=== PATIENT | female | born 1995 | race Asian ===

== ENCOUNTER → 2023-09-26 07:24 | Outpatient (CLI) | payer OTHER, SELFPAY ==
--- NOTE | 2023-09-26 07:30 | DI.MRI.S_ITS ---
PROCEDURE: MR LUMBAR SPINE WO CON INDICATIONS: Sacroiliitis and low back pain TECHNIQUE: Noncontrast sagittal T1 spin echo and T2 fast echo, sagittal STIR, axial T1 and T2 fast spin echo through the lumbar spine. Axial and oblique coronal T1 spin echo and STIR through the sacrum. In cases with scoliosis, additional coronal T2 fast spin echo may be performed. COMPARISON: None. FINDINGS: Image quality: Excellent. Alignment and Curvature: Trace anterolisthesis of L5 on S1. Bone Marrow: Marrow is of normal overall signal. No acute vertebral body compression fractures. No sacral fractures. Spinal Cord: Conus medullaris terminates at the L1 level. Visualized cord demonstrates normal signal and size. Paraspinous Soft Tissues: No paravertebral masses. T12-L1: Normal appearance. L1-L2: Normal appearance. L2-L3: Normal appearance. L3-L4: Disc bulge. Facet hypertrophy. Mild canal stenosis. No significant foraminal stenosis. L4-L5: Disc bulge. Facet hypertrophy. Mild canal stenosis. No significant foraminal stenosis. L5-S1: There is moderate broad-based posterior disc protrusion, indenting on the thecal sac, resulting in moderate canal stenosis. Both S1 nerve roots are mildly posteriorly deviated in the lateral recesses. Bilateral facet hypertrophy. No significant foraminal stenosis. Sacrum: Sacral neural foramina appear normal throughout. Superior to the piriformis muscles, the pre-plexal structures appear normal, including the lumbosacral trunk and S1 root. Just anterior to the piriformis muscles, the sacral plexus proper demonstrates normal morphology (lumbosacral trunk, S1 to S3 nerve roots). Inferior to the piriformis muscles, the sciatic nerves appear normal. IMPRESSION: 1. There is multilevel underlying facet arthropathy. 2. At L5-S1, there is a moderate broad-based posterior disc protrusion, resulting in moderate canal stenosis. Both S1 nerve roots are mildly posteriorly deviated in the lateral recesses. 3. Canal stenosis is mild at L3-L4 and L4-L5. Dictated by: Shaw Coffey M.D. on 09/28/2023 at 9:36 Approved by: Shaw Coffey M.D. on 09/28/2023 at 9:41
== END ==
PROVIDERS: Referring Provider Family Medicine; Visit Provider Family Medicine
DX: M46.1 Sacroiliitis, not elsewhere classified (principal); M47.816 Spondylosis without myelopathy or radiculopathy, lumbar region; M47.817 Spondylosis without myelopathy or radiculopathy, lumbosacral region; M51.27 Other intervertebral disc displacement, lumbosacral region; M48.061 Spinal stenosis, lumbar region without neurogenic claudication; M48.07 Spinal stenosis, lumbosacral region
CPT/HCPCS: 72148

== ENCOUNTER 2025-07-19 05:34 | Emergency (ER) | payer OTHER, SELFPAY ==
--- NOTE | 2025-07-19 05:41 | ED.BACK ---
HPI - Back Pain/Injury General Chief Complaint: Back Pain/Injury Stated Complaint: Lower Back Pain, Bilateral Hip Pain Time Seen by Provider: 07/19/25 05:39 History of Present Illness HPI Narrative: 30-year-old female history of sacral issues dating back to last year whereby she was seen by orthopedic doctor prescribed steroids and had physical therapy for 6 months which temporarily helped. She notices during change in weather to colder weather that her symptoms are more severe and today she woke up in pain right-sided back pain and hip pain radiating down the right leg. Patient did not take anything for this pain prior to arrival. 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 Patient denies bowel or bladder incontinence, fever, chills, body aches, urinary complaints, abdominal pain. Other than what is stated 14 point review system is negative. Related Data Previous Rx's ?Medication ?Instructions ?Recorded diclofenac sodium 75 mg 75 mg PO BID PRN pain #30 tabs 07/19/25 tablet,delayed release methylprednisolone 4 mg tablets in See Rx Instructions PO .COMPLEX 07/19/25 a dose pack (Medrol (Cesar)) #21 ea Allergies Allergy/AdvReac Type Severity Reaction Status Date / Time No Known Drug Allergies Allergy Verified 07/19/25 05:49 Review of Systems Review of Systems ROS Unobtainable: All systems reviewed & are unremarkable except as noted in HPI and below Exam Narrative Exam Narrative: GENERAL: [30] year old patient appears stated age. Well-developed patient, in mild distress. HEAD: Atraumatic. Normocephalic. EYES: Pupils equal round and reactive. Extraocular motions intact. No scleral icterus. No injection or drainage. ENT: Nose without bleeding, purulent drainage. Throat without erythema, tonsillar hypertrophy or exudate. Airway patent. NECK: Trachea midline. Non tender EXTREMITIES: No edema or joint tenderness. BACK:R paralumbosacral region L4-5 L5-S1 TTP without deformity or crepitance. No flank tenderness. No midline tenderness of C T or L spine NEURO: AOx3. SKIN: No rash or erythema of visible areas Procedures [facility] [place] Procedure Name of Procedure: Right-sided back steroid trigger point injection Location: L 4 L 5 S 1 Time out performed: Yes Technique/Description of procedure performed: Patient draped and prepped in a sterile fashion. Using 20-1-1/2 gauge needle with Kenalog 40 mg 1 mL and 2% lidocaine without epi 4 mL and a 5 cc syringe 10 mL total was injected in the paralumbar sacral region L4 (3ml) -L5 (3ml) and S1 (4ml) Patient tolerated procedure: Well Complications: none MDM - Back Pain/Injury MDM Narrative Medical decision making narrative: Vital signs, nurse triage note, medication list, previous ER visits, and all imaging studies reviewed. Patient given ibuprofen and [place] here and also had a right-sided back trigger point injection. Patient will be discharged on Medrol Dosepak and diclofenac prescription follow up with Orthopedic group as previously seen before. Differential diagnosis includes spondylolisthesis, spondylosis, spondylolysis, sprain, strain, herniated disc. Discharge Plan Departure Patient Disposition: Home Clinical Impression: Acute low back pain Qualifiers: Back pain laterality: right Sciatica presence: with sciatica Sciatica laterality: sciatica of right side Qualified Code(s): M54.41 - Lumbago with sciatica, right side Instructions: DI for Low Back Pain Activity Restrictions/Additional Instructions: Return with new or worsening symptoms. Take medicines as directed. Follow up with orthopedic doctor as previously seen if no improvement in 1-2 weeks. Prescriptions: New diclofenac sodium 75 mg tablet,delayed release (DR/EC) 75 mg PO BID PRN (Reason: pain) Qty: 30 0RF methylprednisolone [Medrol (Cesar)] 4 mg tablets,dose pack See Rx Instructions .ROUTE .COMPLEX Qty: 21 0RF Rx Instructions: orally per package directions Stand Alone Forms: Patient Portal/API
[2025-07-19 05:49] VITALS: BP 118/59; PULSE 60; RESP 15; TEMP 36.6; O2SAT 99; BMI 21.7
[2025-07-19] MEDS: IBUPROFEN 400 MG TABLET 800 MG PO (06:07)
[2025-07-19] MEDS: LIDOCAINE 2% INJ MDV 20ML 20 ML INJ (06:07)
[2025-07-19] MEDS: TRIAMCINOLONE 40 MG/ML VIAL INJ (06:08)
--- NOTE | 2025-07-19 06:15 | DI.CT.S_ITS ---
PROCEDURE: CT LUMBAR SPINE WO CON INDICATIONS: back pain - hx of moderate canal stenosis TECHNIQUE: Noncontrast 3 mm thick sections acquired from the T12 level to the sacrum. Sagittal and coronal reformats were constructed. For radiation dose reduction, the following was used: automated exposure control. COMPARISON: [facility], MR, MR LUMBAR SPINE WO CON, 09/26/2023, 7:37. [facility], CR, XR LUMBAR SPINE WITH FLEXION EXTENSION 5 VIEWS, 10/29/2023, 15:24. FINDINGS: Image quality: Excellent. Bones: There is normal bony alignment. No acute vertebral body compression fractures. No suspicious lytic or blastic bony lesions. No pars defects. T12-L1: No significant spinal canal stenosis or neural foraminal narrowing. L1-L2: No significant spinal canal stenosis or neural foraminal narrowing. L2-L3: No significant spinal canal stenosis or neural foraminal narrowing. L3-L4: Mild circumferential disc bulging. Minimal spinal canal narrowing without significant neural foraminal narrowing. L4-L5: Mild circumferential disc bulging. Minimal spinal canal narrowing without significant neural foraminal narrowing. L5-S1: Mild circumferential disc bulging and loss of disc space height. Findings result in mild narrowing of the spinal canal without significant neural foraminal narrowing. Soft tissues: No retroperitoneal masses or hematomas. Visualized aorta is normal in caliber. IMPRESSION: No acute osseous abnormality. Mild degenerative disc disease without high-grade spinal canal stenosis, not significantly changed when compared to the MRI from 09/26/2023. There is no significant discrepancy when compared to the overnight preliminary report. Approved by: Chuy Unger M.D. on 07/19/2025 at 8:51
[2025-07-19 06:27] VITALS: BP 107/57; PULSE 65; RESP 15; O2SAT 98
== END 2025-07-19 06:35 | disposition home or self-care (01) ==
PROVIDERS: Emergency Provider Family Medicine
DX: M54.41 Lumbago with sciatica, right side (principal)
CPT/HCPCS: 72131; 99283; 99284